=== PATIENT | male | born 1950 | race Caucasian/White ===

== ENCOUNTER 2019-10-11 14:58 | Emergency (ER) | payer MEDICARE, BC ==
[~2019-10-11] VITALS: Ht 177.8 cm; Wt 91.4 kg
[2019-10-11 16:07] LABS: EOS # 0.1 (0.04-0.40); EOS % 0.9 % (0.0-4.0); HEMOGLOBIN 10.4 g/dL (13.5-18.0); LYMPH# 1.6 (1.50-4.00); MEAN CELL VOLUME 86 fl (78-100); MEAN CORPUSCULAR HEMOGLOBIN 27 pg (27-31); MEAN CORPUSCULAR HGB CONC 32 g/dL (33-37); MEAN PLATELET VOLUME 8.9 fl (7.4-10.4); MONO # 0.4 (0.20-0.80); NEU # 5.5 (1.40-6.50); PLATELET COUNT 321 K/mm3 (130-400); RED BLOOD COUNT 3.83 M/mm3 (4.20-5.60); RED CELL DISTRIBUTION WIDTH 14.9 % (11.5-14.5); WHITE BLOOD COUNT 7.6 K/mm3 (4.8-10.8)
[2019-10-11 16:22] LABS: POTASSIUM 4.1 mmol/L (3.5-5.1); SODIUM 140 mmol/L (136-145)
[2019-10-11 16:23] LABS: CALCIUM 8.4 mg/dL (8.3-10.5)
[2019-10-11 16:24] LABS: GLUCOSE 87 mg/dL (75-110); TOTAL PROTEIN 5.8 g/dL (6.2-8.1)
[2019-10-11 16:25] LABS: CARBON DIOXIDE 24 mmol/L (23-31)
[2019-10-11 16:29] LABS: AST-SGOT 20 U/L (5-34); PROTHROMBIN TIME 15.8 SECONDS (9.0-12.0)
[2019-10-11 16:38] LABS: ALT/SGPT < 6 U/L (0-55)
[2019-10-11] MEDS ORDERED: CLEOCIN HCL300 MG PO (17:12)
[2019-10-11] MEDS ORDERED: PROBIOTIC & ACI1 CAP PO (17:12)
[2019-10-11 17:28] VITALS: BP 103/64
== END 2019-10-11 17:35 | disposition home or self-care (01) ==
LOC: ED 14:58
PROVIDERS: Nurse Practitioner Primary Care
DX: J69.0 Pneumonitis due to inhalation of food and vomit (principal); I10 Essential (primary) hypertension; Z88.0 Allergy status to penicillin; Z79.01 Long term (current) use of anticoagulants; Z85.46 Personal history of malignant neoplasm of prostate
CPT/HCPCS: Q9967